=== PATIENT | female | born 1980 | race Caucasian/White ===

== ENCOUNTER → 2022-10-13 | Emergency (ER) | payer OTHER ==
[~2022-10-13] VITALS: Ht 160 cm; Wt 57.2 kg
[~2022-10-13] MED LIST: LOSARTAN POTASS25 MG PO; OSELTAMIVIR PHO75 MG; SYNTHROID112 MCG PO
== END | disposition home or self-care (01) ==
LOC: ER 09:18
DX: N39.0 Urinary tract infection, site not specified (principal); Z88.6 Allergy status to analgesic agent